=== PATIENT | male | born 1945 | race Caucasian/White ===

== ENCOUNTER → 2023-12-17 09:51 | Outpatient (REF) | payer OTHER, SELFPAY ==
[2023-12-17 10:30] LABS: % Basophils 1.1 % (0-2); % Eosinophils 4.3 % (0-6); % Lymphocytes 29.2 % (20.5-51.1); % Monocytes 8.8 % (1.7-9.3); % Neutrophils 56.6 % (42.2-75.2); Absolute Basophils 0.1 10^3/uL (0-0.2); Absolute Eosinophils 0.2 10^3/uL (0-0.7); Absolute Lymphocytes 1.6 10^3/uL (1.2-3.4); Absolute Monocytes 0.5 10^3/uL (0.1-0.6); Hematocrit 44.3 % (39.0-52.0); Hemoglobin 15.4 g/dL (13.0-18.0); Mean Corp Hgb Conc. 34.8 g/dL (33.0-37.0); Mean Corpuscular Hgb 32.6 pg (27.0-31.0); Mean Corpuscular Volume 93.9 fL (80.0-94.0); Mean Platelet Volume 10.3 fL (7.4-10.4); Nucleated Red Blood Cells % 0 % (-); Platelet Count 181 10^3/uL (130-400); Red Blood Cell Count 4.72 10^6/uL (4.70-6.10); Red Cell Dist. Width 12.4 % (11.5-14.5); White Blood Cell Count 5.4 10^3/uL (4.8-10.8)
[2023-12-17 11:03] LABS: Blood Urea Nitrogen 18 mg/dl (9-20); LDH 195 U/L (120-246)
[2023-12-17 11:31] LABS: PSA, Total - Diagnostic 0.23 ng/ml (0.0-4.0)
== END ==
LOC: REG 09:51
PROVIDERS: ATTENDING PHYSICIAN Specialist; FAMILY PHYSICIAN Nurse Practitioner Adult Health; REFERRING PHYSICIAN Internal Medicine Hematology & Oncology
DX: C61 Malignant neoplasm of prostate (principal); D50.9 Iron deficiency anemia, unspecified; C81.13 Nodular sclerosis Hodgkin lymphoma, intra-abdominal lymph nodes
CPT/HCPCS: 36415; 82565; 83615; 84153; 84520; 85025

== ENCOUNTER → 2023-12-26 07:32 | Outpatient (REF) | payer OTHER, SELFPAY | LOC: RAD 07:32 | PROVIDERS: ATTENDING PHYSICIAN Internal Medicine Hematology & Oncology; FAMILY PHYSICIAN Nurse Practitioner Adult Health | DX: C81.13 Nodular sclerosis Hodgkin lymphoma, intra-abdominal lymph nodes (principal); D50.9 Iron deficiency anemia, unspecified | CPT/HCPCS: 71260; 74177; Q9967 ==

== ENCOUNTER → 2024-03-07 07:35 | Outpatient (REF) | payer OTHER, SELFPAY ==
[2024-03-07 08:40] LABS: Iron 107 ug/dl (49-181)
[2024-03-07 08:50] LABS: Percent Saturation 39 % (20-50); Total Iron Binding Capacity 272 ug/dl (261-462)
== END ==
LOC: REG 07:35
PROVIDERS: ATTENDING PHYSICIAN Nurse Practitioner Adult Health
DX: D50.9 Iron deficiency anemia, unspecified (principal)
CPT/HCPCS: 36415; 83540; 83550

== ENCOUNTER 2024-05-24 20:04 | Emergency (ER) | payer OTHER, SELFPAY ==
[2024-05-24 20:09] VITALS: BP 145/85
[2024-05-25 00:04] VITALS: BP 153/84
--- NOTE | 2024-05-25 00:18 | EDRN ---
got up and twisted his R ankle. Pt walked on it for a week. Pt now has a swollen. R leg. Pt has a bruise R lower leg with warmth to touch. Pt has faint pedal pulses and pitting edema.
--- NOTE | 2024-05-25 00:37 | ED.MUSCINJ ---
HPI-Injury
General
Chief Complaint: Musculo-Skeletal Complaint
Source: patient
Exam Limitations: none
Time Seen by Provider: 05/25/24 00:22
History of Present Illness-Injury
Is this injury a work related problem?: No
Is pt an associate of [facility]/[place]?: No
Initial Injury comments:
This is a 78 year old male that comes in with c/o right foot and calf swelling. States that on Tuesday he twisted his foot and instead of falling he just sat down. States that he has been able to walk on the foot but there was pain. States that
tonight he noticed that his calf was swollen and he became concerned. States that he did not hit his head or have any LOC. Denies any fever, chills, chest pain, SOB, abd pain, nausea, vomiting, diarrhea, headache, dizziness.
Past History
Past History
ED Past Medical History: Arrthythmia (PVC's, ), HTN and Other (RBBB, diverticulitis, GI bleeding. Psoriasis, Anemia. )
ED Past Surgical History: Appendectomy, Bowel resection (sigmoid colon), Cholecystectomy and Urological (Prostatectomy)
Social History
Tobacco: Non-smoker
Alcohol: Occasional
Personal:
Living: with family
Review of Systems
Review of Systems
All Other Systems: ROS reviewed and negative except as documented in HPI and ROS
Constitutional: Reports no symptoms; Denies fever or chills
EENT: Reports no symptoms
Respiratory: Reports no symptoms; Denies cough or trouble breathing
Cardiac: Reports no symptoms; Denies chest pain
ABD/GI: Reports no symptoms; Denies abdominal pain, nausea, vomiting or diarrhea
: Reports no symptoms
Musculoskeletal: Reports other (Swelling of the foot and calf with pain)
Skin: Reports no symptoms
Neurological: Reports no symptoms; Denies dizzy or headache
Psychiatric: Reports no symptoms
Musculoskeletal Injury Exam
Musculoskeletal Injury Exam
Right Lateral Foot:
Pain with Movement?: None
Tender to palpation?: Mild
Soft tissue swelling?: Moderate
External deformity and angulation?: None
Joint effusion?: None
Contusion?: None
Hematoma-local bleeding into tissue?: None
Strain- Sprain- Tear (Connective tissue injury)?: None
Crepitus with movement?: No
Joint instability?: No
Malalignment/deformity?: No
Range of motion: Full
Distal skin color and temperature: normal-warm & good color
Capillary Refill: normal
Normal distal neurovascular exam?: Yes
Phy Exam
General Physical Exam
General Presentation: well appearing and no apparent distress
General age: appears stated age
General Skin: warm and dry
General Habitus: elderly
General Mental: alert
General Hydration: appears well hydrated
ENT Exam
ENT Exam: TM's normal, pharynx normal and neck supple
Eye Exam
Eye Exam: EOMI
Cardiovascular Exam
Cardiovascular Exam: regular rate/rhythm and normal peripheral pulses
Pulmonary Exam
Pulmonary Exam: lungs clear, no respiratory distress, no rales, chest non tender, no crackles, no rhonchi, no wheezing and no cough
Musculoskeletal Exam
Musculoskeletal Exam: full ROM, edema (Pitting +1 edema of the foot and calf ) and other (negative for discomfort with flexion of the ankle. tenderness with palpation over the proximal 5th metatarsal. )
Skin Exam
Skin Exam: normal color, warm/dry, no petechia and other (Bruising of the great toe, second, third and fourth with bruising on the lateral foot. )
Psychiatric Exam
Psychiatric Exam: normal mood/affect
Injury Course
Orders/Labs/Results
Orders:
Orders
05/24/24 20:06
CR Ankle - Right Min 3 Views * Urgent
Comment:
Reason For Exam: right ankle injury
Foot, Right 3 View [CR Foot - Right Min 3 Views] Urgent
Comment:
Reason For Exam: right foot injury, bruising and swelling.
05/24/24 20:07
Legs, Right US [US Periph Venous LOWER Ext RT] Urgent
Comment:
Reason For Exam: right calf swelling,
MDM/Problems Addressed
Differential Diagnosis Includes:
DVT, Fracture foot, fracture ankle.
MDM/Problems Addressed:
This is a 78 year old male that comes in with c/o right foot and calf swelling. states that he twisted his foot on Tuesday and he has been walking on the foot but has pain.
Will get US and X-ray of the ankle and foot
Explained to patient that there is a fracture on the 5th metatarsal. Will place patient on walking boat and given crutches. Suggested that he use a walker instead of the crutches if he has one. Follow up with the refund specialist for further
evaluation. Return with any concerns.
Chronic conditions affecting care:
NA
Acute Exacerbation and/or Progression of Chronic Illness:
NA
*Radiology
Radiology exam reviewed: preliminary read by ED provider (Right ankle. Negative for fractures. Right foot- 5th proximal metatarsal fractures ) and radiology read reviewed (US-Normal. No evidence of deep venous thrombosis. )
*Pulse Oximetry
Patient hypoxic: no
*EKG
Interpreted by ED Provider?: NA
Rate: EKG- N/A
*Potato Peeler Interpretation
Rate: Potato Peeler- N/A
*Critical Care Note
Total Time (30-74mins, 75-104mins- exclusive of procedures): Not Applicable
ED Attending Note
-
Portions of this chart may have been created with voice recognition software.� Occasional wrong word or��sound alike� substitutions may have occurred due to the inherent limitations of voice recognition software.
Discharge Plan
Departure
Patient Disposition: Home (Routine Discharge)
Date of Disposition: 05/25/24
Time of Disposition: 00:49
Patient with high blood pressure during this ER visit?: Yes
Condition: Good
Covid-19: Not Applicable
Discharge Problem:
Metatarsal fracture
Instructions: Foot Fracture (DC), BLOOD PRESSURE, RICE Therapy
Prescriptions:
No Action
Aspirin 325 MG Tablet
325 mg PO DAILY
Atorvastatin
20 mg PO DAILY
multivitamin 1 EACH tablet
1 tab PO DAILY
ascorbic acid (vitamin C) [Vitamin C] 1,000 MG tablet
1,000 mg PO DAILY
atenolol 25 MG tablet
25 mg PO QPM
amlodipine 5 MG tablet
5 mg PO DAILY
vitamin B complex 1 TAB tablet
1 tab PO DAILY
dutasteride [Avodart] 0.5 MG capsule
0.5 mg PO QPM
cholecalciferol (vitamin D3) 2,000 UNITS tablet
2,000 units PO DAILY
magnesium oxide 400 MG capsule
1 cap PO DAILY
Tantoprazole
40 mg PO DAILY
Referrals:
Oliva Wang CRNP [Family Provider] -
Vineet Adkins MD [Active] - Follow up in 2-3 days
Activity Restrictions/Additional Instructions:
As discussed, you have a 5th metatarsal fracture. Please wear the boat when you are up walking around. Limit the weight baring as tolerated. Elevate the foot when sitting around and ice to the foot. Follow up with the refund specialist for
further evaluation. Tylenol or Ibuprofen as needed for pain. IF YOU HAVE INCREASED OR CHANGING PAIN, OR YOU HAVE ANY OTHER CONCERNS PLEASE RETURN TO THE EMERGENCY ROOM.
Interventions
Interventions:
*Risk Screen - Suicide Last Done: 05/24/24 20:09
*General Assessment Last Done: 05/24/24 20:09
*Neglect/Abuse Screening Last Done: 05/24/24 20:09
ED- Fall Risk Assessment Last Done: 05/25/24 00:10
*ED COVID-19 Vaccine History Last Done: 05/24/24 20:09
ED-Musculoskeletal Assessment Last Done: 05/25/24 00:10
Discharge Date and Time
Print Language: JAPANESE
[2024-05-25 02:15] VITALS: BP 153/81
== END 2024-05-25 02:15 | disposition home or self-care (01) ==
LOC: EMR 20:04
PROVIDERS: EMERGENCY PHYSICIAN Student in an Organized Health Care Education/Training Program; FAMILY PHYSICIAN Nurse Practitioner Adult Health
DX: S92.351A Displaced fracture of fifth metatarsal bone, right foot, initial encounter for closed fracture (principal); X50.1XXA Overexertion from prolonged static or awkward postures, initial encounter; I10 Essential (primary) hypertension
CPT/HCPCS: 99284; 73610; 73630; 93971

== ENCOUNTER → 2024-05-30 11:01 | Outpatient (REF) | payer OTHER, SELFPAY ==
[2024-05-30 11:55] LABS: % Basophils 0.6 % (0-2); % Eosinophils 2.6 % (0-6); % Immature Granulocytes 0.2 % (0-0.5); % Lymphocytes 19.8 % (20.5-51.1); % Monocytes 9.5 % (1.7-9.3); % Neutrophils 67.3 % (42.2-75.2); Absolute Eosinophils 0.2 10^3/uL (0-0.7); Absolute Lymphocytes 1.3 10^3/uL (1.2-3.4); Absolute Monocytes 0.6 10^3/uL (0.1-0.6); Absolute Neutrophils 4.3 10^3/uL (1.4-6.5); Hematocrit 40.9 % (39.0-52.0); Hemoglobin 13.9 g/dL (13.0-18.0); Mean Corpuscular Hgb 31.3 pg (27.0-31.0); Mean Corpuscular Volume 92.1 fL (80.0-94.0); Mean Platelet Volume 9.9 fL (7.4-10.4); Nucleated Red Blood Cells % 0 % (-); Platelet Count 200 10^3/uL (130-400); Red Blood Cell Count 4.44 10^6/uL (4.70-6.10); Red Cell Dist. Width 12.8 % (11.5-14.5); White Blood Cell Count 6.4 10^3/uL (4.8-10.8)
[2024-05-30 12:28] LABS: Blood Urea Nitrogen 25 mg/dl (9-20); LDH 204 U/L (120-246)
== END ==
LOC: REG 11:01
PROVIDERS: ATTENDING PHYSICIAN Internal Medicine Hematology & Oncology; FAMILY PHYSICIAN Nurse Practitioner Adult Health
DX: D50.9 Iron deficiency anemia, unspecified (principal); C81.13 Nodular sclerosis Hodgkin lymphoma, intra-abdominal lymph nodes
CPT/HCPCS: 36415; 82565; 83615; 84520; 85025

== ENCOUNTER → 2024-06-20 08:24 | Outpatient (REF) | payer OTHER, SELFPAY | LOC: RAD 08:24 | PROVIDERS: ATTENDING PHYSICIAN Internal Medicine Hematology & Oncology; FAMILY PHYSICIAN Nurse Practitioner Adult Health | DX: C81.13 Nodular sclerosis Hodgkin lymphoma, intra-abdominal lymph nodes (principal) | CPT/HCPCS: 71260; 74177; Q9967 ==

== ENCOUNTER → 2024-09-15 11:38 | Outpatient (REF) | payer OTHER, SELFPAY ==
[2024-09-15 13:29] LABS: PSA, Total - Diagnostic 0.14 ng/ml (0.0-4.0)
== END ==
LOC: REG 11:38
PROVIDERS: ATTENDING PHYSICIAN Specialist; FAMILY PHYSICIAN Nurse Practitioner Adult Health
DX: Z85.46 Personal history of malignant neoplasm of prostate (principal)
CPT/HCPCS: 36415; 84153

== ENCOUNTER → 2024-10-13 08:32 | Outpatient (REF) | payer OTHER, MEDICARE, SELFPAY ==
[2024-10-13 09:14] LABS: % Basophils 0.9 % (0-2); % Eosinophils 3.9 % (0-6); % Immature Granulocytes 0.5 % (0-0.5); % Lymphocytes 29.9 % (20.5-51.1); % Monocytes 9.1 % (1.7-9.3); % Neutrophils 55.7 % (42.2-75.2); Absolute Eosinophils 0.2 10^3/uL (0-0.7); Absolute Lymphocytes 1.3 10^3/uL (1.2-3.4); Absolute Monocytes 0.4 10^3/uL (0.1-0.6); Absolute Neutrophils 2.4 10^3/uL (1.4-6.5); Hematocrit 44.8 % (39.0-52.0); Hemoglobin 14.5 g/dL (13.0-18.0); Mean Corp Hgb Conc. 32.4 g/dL (33.0-37.0); Mean Corpuscular Hgb 31.5 pg (27.0-31.0); Mean Corpuscular Volume 97.4 fL (80.0-94.0); Mean Platelet Volume 10.1 fL (7.4-10.4); Nucleated Red Blood Cells % 0 % (-); Platelet Count 162 10^3/uL (130-400); Red Cell Dist. Width 12.7 % (11.5-14.5); White Blood Cell Count 4.4 10^3/uL (4.8-10.8)
[2024-10-13 09:45] LABS: ALT (SGPT) 28 U/L (0-50); AST (SGOT) 26 U/L (17-59); Albumin 4.4 g/dl (3.5-5.0); Alkaline Phosphatase 57 U/L (38-126); Blood Urea Nitrogen 18 mg/dl (9-20); Calcium 10.2 mg/dl (8.4-10.2); Carbon Dioxide 28 mmol/L (22-30); Chloride 104 mmol/L (98-107); Glucose 97 mg/dl (70-99); HDL Cholesterol 56 mg/dl; LDL Cholesterol, Calculated 48 mg/dl; Sodium 140 mmol/L (135-145); Total Bilirubin 1.1 mg/dl (0.2-1.3); Total Cholesterol 116 mg/dl (50-199); Total Protein 6.8 g/dl (6.3-8.2); Triglyceride 64 mg/dl (10-149); Very Low Density Lipoprotein 12 mg/dl (0-30); eGFR > 60.00
[2024-10-13 10:22] LABS: TSH Reflex To Free T4 1.48 uIU/ml (0.47-4.68)
[2024-10-13 10:57] LABS: Folate > 20.0 ng/ml (2.76-20); Vitamin B12 > 1000 pg/ml (239-931)
[2024-10-13 11:11] LABS: Glycohemoglobin (HgbA1c) 5.3 % (4.0-5.6)
== END ==
LOC: REG 08:32
PROVIDERS: ATTENDING PHYSICIAN Nurse Practitioner Adult Health
DX: Z00.00 Encounter for general adult medical examination without abnormal findings (principal); Z13.29 Encounter for screening for other suspected endocrine disorder; G62.9 Polyneuropathy, unspecified; E53.8 Deficiency of other specified B group vitamins; Z79.899 Other long term (current) drug therapy; R73.01 Impaired fasting glucose
CPT/HCPCS: 36415; 80053; 80061; 82607; 82746; 83036; 84443; 85025

== ENCOUNTER → 2025-01-05 08:51 | Outpatient (REF) | payer OTHER, MEDICARE, SELFPAY ==
[2025-01-05 10:07] LABS: % Eosinophils 4.2 % (0-6); % Immature Granulocytes 0.2 % (0-0.5); % Lymphocytes 24.2 % (20.5-51.1); % Monocytes 8.8 % (1.7-9.3); % Neutrophils 61.6 % (42.2-75.2); Absolute Basophils 0.1 10^3/uL (0-0.2); Absolute Eosinophils 0.3 10^3/uL (0-0.7); Absolute Lymphocytes 1.5 10^3/uL (1.2-3.4); Absolute Monocytes 0.5 10^3/uL (0.1-0.6); Absolute Neutrophils 3.7 10^3/uL (1.4-6.5); Hematocrit 45.5 % (39.0-52.0); Hemoglobin 14.7 g/dL (13.0-18.0); Mean Corp Hgb Conc. 32.3 g/dL (33.0-37.0); Mean Corpuscular Hgb 31.5 pg (27.0-31.0); Mean Corpuscular Volume 97.4 fL (80.0-94.0); Mean Platelet Volume 10.4 fL (7.4-10.4); Nucleated Red Blood Cells % 0 % (-); Platelet Count 178 10^3/uL (130-400); Red Blood Cell Count 4.67 10^6/uL (4.70-6.10); Red Cell Dist. Width 12.9 % (11.5-14.5)
[2025-01-05 10:30] LABS: ALT (SGPT) 27 U/L (0-50); AST (SGOT) 21 U/L (17-59); Albumin 4.3 g/dl (3.5-5.0); Alkaline Phosphatase 45 U/L (38-126); Blood Urea Nitrogen 17 mg/dl (9-20); Calcium 10.3 mg/dl (8.4-10.2); Carbon Dioxide 32 mmol/L (22-30); Chloride 107 mmol/L (98-107); Glucose 103 mg/dl (70-99); LDH 190 U/L (120-246); Potassium 5.3 mmol/L (3.5-5.1); Sodium 143 mmol/L (135-145); Total Bilirubin 0.7 mg/dl (0.2-1.3); Total Protein 6.9 g/dl (6.3-8.2); eGFR > 60.00
== END ==
LOC: REG 08:51
PROVIDERS: ATTENDING PHYSICIAN Internal Medicine Hematology & Oncology; FAMILY PHYSICIAN Nurse Practitioner Adult Health
DX: D50.9 Iron deficiency anemia, unspecified (principal); C81.13 Nodular sclerosis Hodgkin lymphoma, intra-abdominal lymph nodes
CPT/HCPCS: 36415; 80053; 83615; 85025

== ENCOUNTER → 2025-05-04 08:25 | Outpatient (REF) | payer OTHER, SELFPAY ==
[2025-05-04 09:20] LABS: Hematocrit 43.6 % (39.0-52.0); Hemoglobin 14.3 g/dL (13.0-18.0); Mean Corp Hgb Conc. 32.8 g/dL (33.0-37.0); Mean Corpuscular Volume 96.0 fL (80.0-94.0); Nucleated Red Blood Cells % 0 % (-); Platelet Count 171 10^3/uL (130-400); Red Cell Dist. Width 13.1 % (11.5-14.5)
[2025-05-04 09:44] LABS: ALT (SGPT) 28 U/L (0-50); AST (SGOT) 23 U/L (17-59); Albumin 4.1 g/dl (3.5-5.0); Alkaline Phosphatase 48 U/L (38-126); Blood Urea Nitrogen 20 mg/dl (9-20); Calcium 10.2 mg/dl (8.4-10.2); Carbon Dioxide 29 mmol/L (22-30); Chloride 107 mmol/L (98-107); Glucose 94 mg/dl (70-99); HDL Cholesterol 64 mg/dl; LDL Cholesterol, Calculated 42 mg/dl; Potassium 4.7 mmol/L (3.5-5.1); Sodium 140 mmol/L (135-145); Total Protein 6.7 g/dl (6.3-8.2); Very Low Density Lipoprotein 10 mg/dl (0-30); eGFR > 60.00
[2025-05-04 10:22] LABS: Glycohemoglobin (HgbA1c) 5.3 % (4.0-5.6)
== END ==
LOC: REG 08:25
PROVIDERS: ATTENDING PHYSICIAN Nurse Practitioner Adult Health
DX: E78.00 Pure hypercholesterolemia, unspecified (principal); I10 Essential (primary) hypertension; D50.9 Iron deficiency anemia, unspecified; D53.9 Nutritional anemia, unspecified; R73.01 Impaired fasting glucose; Z13.29 Encounter for screening for other suspected endocrine disorder
CPT/HCPCS: 36415; 80053; 80061; 83036; 84443; 85025

== ENCOUNTER → 2025-06-08 09:02 | Outpatient (REF) | payer OTHER, SELFPAY ==
[2025-06-08 10:46] LABS: Hematocrit 44.8 % (39.0-52.0); Hemoglobin 14.5 g/dL (13.0-18.0); Mean Corp Hgb Conc. 32.4 g/dL (33.0-37.0); Mean Corpuscular Volume 97.6 fL (80.0-94.0); Nucleated Red Blood Cells % 0 % (-); Platelet Count 170 10^3/uL (130-400); Red Cell Dist. Width 12.7 % (11.5-14.5)
[2025-06-08 11:09] LABS: ALT (SGPT) 30 U/L (0-50); AST (SGOT) 25 U/L (17-59); Albumin 4.2 g/dl (3.5-5.0); Alkaline Phosphatase 46 U/L (38-126); Blood Urea Nitrogen 19 mg/dl (9-20); Calcium 9.9 mg/dl (8.4-10.2); Carbon Dioxide 28 mmol/L (22-30); Chloride 107 mmol/L (98-107); Glucose 99 mg/dl (70-99); LDH 184 U/L (120-246); Potassium 4.7 mmol/L (3.5-5.1); Sodium 137 mmol/L (135-145); Total Protein 6.9 g/dl (6.3-8.2); eGFR > 60.00
== END ==
LOC: REG 09:02
PROVIDERS: ATTENDING PHYSICIAN Internal Medicine Hematology & Oncology; FAMILY PHYSICIAN Nurse Practitioner Adult Health
DX: D50.9 Iron deficiency anemia, unspecified (principal); C81.13 Nodular sclerosis Hodgkin lymphoma, intra-abdominal lymph nodes
CPT/HCPCS: 36415; 80053; 83615; 85025

== ENCOUNTER → 2025-06-24 07:27 | Outpatient (REF) | payer OTHER, SELFPAY | LOC: RAD 07:27 | PROVIDERS: ATTENDING PHYSICIAN Internal Medicine Hematology & Oncology; FAMILY PHYSICIAN Nurse Practitioner Adult Health | DX: C81.13 Nodular sclerosis Hodgkin lymphoma, intra-abdominal lymph nodes (principal) | CPT/HCPCS: 71260; 74177; Q9967 ==